=== PATIENT | female | born 1980 | race Caucasian/White ===

== ENCOUNTER 2016-06-18 15:27 | Emergency (ER) | payer OTHER ==
[~2016-06-18] VITALS: Ht 165.1 cm; Wt 72.0 kg
[~2016-06-18 15:27] MED LIST: AZIT250T94 PO; D-ME118S6 PO; FIORICET PO; HYDR-3498 PO; HYDR-762 PO; HYDR-906 PO; IBUP-1542 PO; NAPR-260 PO; OMEP20CA16 PO; ONDA4TAB14 PO; SUCR1TAB56 PO
[2016-06-18 15:32] VITALS: Ht 165.1 cm; Wt 72.0 kg
--- NOTE | 2016-06-18 16:09 | ERD ---
ER Documentation Chief Complaint Date/Time DATE: 06/18/16 TIME: 16:09 Chief Complaint HEADACHE,EPISODE OF NOSE BLEEDING HPI This pleasant 36-year-old female presents to emergency department with 2 week history of headaches, right-sided facial pain, and nosebleeds. Patient reports intermittent dizziness, denies photosensitivity, nausea or vomiting. ROS All systems reviewed and are negative except as per history of present illness. Medications Home Meds Active Scripts Oxymetazoline Hcl* (Afrin [place]*) 0.05% - 15 Ml [place], 2 SPRAYS NASAL BID Y for nose bleed, #1 EA to each nostril Prov:ELMIRA,CB 06/18/16 Amoxicillin* (Amoxicillin*) 500 Mg Cap, 500 MG PO TID for 10 Days, CAP Prov:ELMIRA,CB 06/18/16 Ondansetron (Ondansetron Odt) 4 Mg Tab.rapdis, 4 MG PO Q6H Y for NAUSEA AND/OR VOMITING, #10 TAB Prov:GARTH CASTANEDA DO 01/03/16 Hydrocodone/Acetaminophen ([place] 5-325 Tablet) 1 Each Tablet, 1 TAB PO Q6H Y for PAIN, #7 TAB Prov:GARTH CASTANEDA DO 01/03/16 Omeprazole* (Omeprazole*) 20 Mg Capsule.dr, 20 MG PO BID, #20 Prov:GARTH CASTANEDA DO 01/03/16 Sucralfate* (Carafate*) 1 Gm Tab, 1 GM PO QID, #14 TAB Prov:GARTH CASTANEDA DO 01/03/16 Ibuprofen* (Motrin*) 600 Mg Tab, 600 MG PO Q6, #20 TAB Prov:ALYSON TOTH PA-C 07/17/15 Hydrocodone Bit-Acetaminophen* ([place]*) 10-325 Mg Tablet, 1 TAB PO Q6 Y for PAIN , #7 TAB Prov:ALYSON TOTH PA-C 07/17/15 Hydrocodone Bit-Acetaminophen* ([place]*) 5-325 Mg Tab, 1 TAB PO Q6 Y for PAIN, # 10 TAB Prov:LEORA MEJIA 07/03/15 Dextromethorphan Hb-Promethazine Hcl (Promethazine DM Syrup) 180 Ml Syrup, 10 ML PO Q6H Y for COUGH, #4 OZ Prov:LEORA MEJIA 07/03/15 Azithromycin* (Zithromax*) 250 Mg Tablet, 250 MG PO .ZPACK DIRECTED, #6 TAB TAKE 500 MG (2 TABS) THE FIRST DAY THEN 250 MG (1 TAB) DAYS 2-5 Prov:LEORA MEJIA Dea 07/03/15 Hydrocodone Bit-Acetaminophen* ([place]*) 5-325 Mg Tab, 1 TAB PO Q6 Y for PAIN, # 10 TAB Prov:ALYSON TOTH PA-C 05/30/15 Ibuprofen* (Motrin*) 600 Mg Tab, 600 MG PO Q6, #20 TAB Prov:CONOR SHEN MD 04/01/15 Acetamin/Butalbital/Caffeine* (Fioricet*) 1 Tab Tab, 1 TAB PO Q4H Y for PAIN LEVEL 1-5, #20 TAB Prov:CONOR SHEN MD 04/01/15 Hydrocodone Bit-Acetaminophen* ([place]*) 5-325 Mg Tab, 1 TAB PO Q6 Y for PAIN, # 20 TAB Prov:LEORA MEJIA Dea 03/20/15 Naproxen* (Naprosyn*) 500 Mg Tablet, 500 MG PO BID Y for PAIN AND/OR INFLAMMATION, #30 TAB Prov:LEORA MEJIA Dea 03/20/15 Allergies Allergies: Coded Allergies: No Known Drug Allergy (Verified Allergy, Unknown, 05/30/15) PMhx/Soc Anesthesia Reaction: No Hx Neurological Disorder: No Hx Respiratory Disorders: No Hx Cardiac Disorders: No Hx Psychiatric Problems: No Hx Miscellaneous Medical Probl: Yes (headaches) Hx Alcohol Use: No Hx Substance Use: No Hx Tobacco Use: No Physical Exam Physical Exam Const: No acute distress Head: Atraumatic Eyes: Normal Conjunctiva, PERRLA, EOMI ENT: Bilateral tympanic membranes retracted, nasal mucosa edematous, right turbinate with bleeding points septum midline. Right-sided maxillary and frontal sinus tenderness. Patient feels pressure behind her eyes with leaning forward, Clarinex injected tongue midline uvula rises and falls with pronation. Neck: No cervical point tenderness, full range of motion. Resp: Clear to auscultation bilaterally Cardio: Regular rate and rhythm, no murmurs Abd: Soft, non tender, non distended. Normal bowel sounds Skin: No petechiae or rashes Back: No midline or flank tenderness Ext: No cyanosis, or edema Neur: Neuro: M/S: Alert and oriented Face: EOMI, face and pharynx with normal sensation and function Motor: Normal strength throughout Sensation: Normal sensation throughout Speech: Normal Cerebel: Normal coordination Normal gait Normal finger to nose DTR: 2+ and symmetric upper/lower extremities Psych: Normal Mood and Affect Procedures/MDM This 36-year-old female presents to emergency department with 2 week history of headaches, nasal congestion, unilateral facial pain and intermittent nosebleeds. Differential diagnosis includes but not limited to migraine headache, sinusitis, sinus headache, allergic rhinitis, intracranial mass. Low suspicion for intracranial mass. Likely acute sinusitis secondary to length of symptoms. Likely sinus headache plan to treat patient with Afrin nasal spray for intermittent nosebleeding. Amoxicillin 500 mg 3 times daily for sinus symptoms I feel patient is candidate for outpatient management follow-up with primary care physician. I feel the patient is stable for discharge at this time. I have discussed results, examination findings, the treatment plan with the patient and family present prior to discharge. Indications for emergent reevaluation, side effects of medication were also discussed. All questions were answered. Patient verbalizes understanding and agrees with plan of care. Departure Diagnosis: Primary Impression: Sinusitis Sinusitis location: unspecified location Chronicity: unspecified Qualified Code: J32.9 - Sinusitis, unspecified chronicity, unspecified location Condition: Good Patient Instructions: Causes of Sinusitis Additional Instructions: Thank you for for coming to [facility] for your care today. Please ask your nurse or provider if you have questions about your care today and do not leave until all your questions have been answered. Please use any medications given as directed and follow-up with your doctor (or the doctor you were referred to) in the next 2-3 days. If you do not have a primary care doctor you [place] [facility] [place] [facility] [place] You may also use motrin and tylenol as needed for fever and/or pain unless instructed otherwise by your provider or nurse. Indications for more urgent follow-up have been discussed, but you may return to the Emergency Department at ANY time for any worrisome or worsening symptoms. If you have abdominal pain, please know that no test or exam you received is perfect and you should follow up within 8 hours for continued pain. If you had any imaging studies today, such as an X-Ray or CT Scan, these studies will be reviewed later by a radiologist. You will be called if there are important findings that were not identified today, so make sure the contact information you provided at registration is correct. If you received any narcotic pain control medicine today, such as Vicodin, Morphine or Dilaudid, your coordination and judgment may be affected for a number of hours. Please do not drive or operate heavy machinery, and you may want someone to assist you at home. If you were given a prescription for narcotic medication, be aware that it is very addictive- use sparingly and only if necessary. CB KU Jun 18, 2016 16:09
[2016-06-18] MEDS ORDERED: AMO500 PO (16:11)
[2016-06-18] MEDS ORDERED: OXYM15SP34 NASAL (16:11)
== END 2016-06-18 16:13 | disposition home or self-care (01) ==
LOC: E/R 15:27
DX: J32.9 Chronic sinusitis, unspecified (principal)
CPT/HCPCS: 99283

== ENCOUNTER 2016-08-29 21:27 | Emergency (ER) | payer SELFPAY ==
[~2016-08-29 21:27] MED LIST changes: +AMO500 PO; +OXYM15SP34 NASAL
[2016-08-30] MEDS ORDERED: ONDA4TAB14 PO (10:35)
[2016-08-30] MEDS ORDERED: HYDR-906 PO (10:35)
[2016-08-30] MEDS ORDERED: TAMS-14 PO (10:35)
[2016-08-30] MEDS ORDERED: IBUP-1542 PO (10:35)
== END 2016-08-29 22:47 | disposition left against medical advice (07) ==
LOC: E/R 21:27
DX: Z53.21 Procedure and treatment not carried out due to patient leaving prior to being seen by health care provider (principal)

== ENCOUNTER 2016-08-30 08:38 | Emergency (ER) | payer OTHER ==
[~2016-08-30] VITALS: Wt 71.5 kg
[2016-08-30] MEDS ORDERED: morphine 4 MG/ML VIAL IV STA (09:02)
[2016-08-30] MEDS ORDERED: SOD CHLORIDE 0.9% 1,000 ML IV STA (09:02)
[2016-08-30] MEDS ORDERED: ONDANSETRON 4 MG INJ IV STA ×2 (09:02→10:24)
--- NOTE | 2016-08-30 09:07 | ERD ---
ER Documentation Chief Complaint Date/Time DATE: 08/30/16 TIME: 09:05 Chief Complaint LEFT SIDE/FLANK PAIN, NAUSEA, VOMITING, ONSET 2 WEEKS HPI 36-year-old female comes to emergency department with left sided flank pain and nausea vomiting for 2 weeks. She states she has diffuse left flank pain that goes to the left upper back, described as achy, moderate pain. She states that she has had frequent urination as well and intermittent diarrhea for the past week. She has not had any fevers or chills. ROS All systems reviewed and are negative except as per history of present illness. Medications Home Meds Active Scripts Tamsulosin Hcl* (Flomax*) 0.4 Mg Cap.er.24h, 0.4 MG PO BID, #30 CAP Prov:ALYSON TOTH PA-C 08/30/16 Ibuprofen* (Motrin*) 600 Mg Tab, 600 MG PO Q6, #30 TAB Prov:ALYSON TOTH PA-C 08/30/16 Ondansetron (Ondansetron Odt) 4 Mg Tab.rapdis, 4 MG PO Q6H Y for NAUSEA AND/OR VOMITING, #10 TAB Prov:ALYSON TOTH PA-C 08/30/16 Hydrocodone/Acetaminophen ([place] 5-325 Tablet) 1 Each Tablet, 1 TAB PO Q6H Y for PAIN, #15 TAB Prov:ALYSON TOTH PA-C 08/30/16 Oxymetazoline Hcl* (Afrin [place]*) 0.05% - 15 Ml [place], 2 SPRAYS NASAL BID Y for nose bleed, #1 EA to each nostril Prov:ELMIRA,CB 06/18/16 Amoxicillin* (Amoxicillin*) 500 Mg Cap, 500 MG PO TID for 10 Days, CAP Prov:ELMIRA,CB 06/18/16 Ondansetron (Ondansetron Odt) 4 Mg Tab.rapdis, 4 MG PO Q6H Y for NAUSEA AND/OR VOMITING, #10 TAB Prov:GARTH CASTANEDA DO 01/03/16 Hydrocodone/Acetaminophen ([place] 5-325 Tablet) 1 Each Tablet, 1 TAB PO Q6H Y for PAIN, #7 TAB Prov:GARTH CASTANEDA DO 01/03/16 Omeprazole* (Omeprazole*) 20 Mg Capsule.dr, 20 MG PO BID, #20 Prov:GARTH CASTANEDA DO 01/03/16 Sucralfate* (Carafate*) 1 Gm Tab, 1 GM PO QID, #14 TAB Prov:GARTH CASTANEDA DO 01/03/16 Ibuprofen* (Motrin*) 600 Mg Tab, 600 MG PO Q6, #20 TAB Prov:ALYSON TOTH PA-C 07/17/15 Hydrocodone Bit-Acetaminophen* ([place]*) 10-325 Mg Tablet, 1 TAB PO Q6 Y for PAIN , #7 TAB Prov:ALYSON TOTH PA-C 07/17/15 Hydrocodone Bit-Acetaminophen* ([place]*) 5-325 Mg Tab, 1 TAB PO Q6 Y for PAIN, # 10 TAB Prov:LEORA MEJIA 07/03/15 Dextromethorphan Hb-Promethazine Hcl (Promethazine DM Syrup) 180 Ml Syrup, 10 ML PO Q6H Y for COUGH, #4 OZ Prov:LEORA MEJIA 07/03/15 Azithromycin* (Zithromax*) 250 Mg Tablet, 250 MG PO .RAFAEL DIRECTED, #6 TAB TAKE 500 MG (2 TABS) THE FIRST DAY THEN 250 MG (1 TAB) DAYS 2-5 Prov:LEORA MEJIA 07/03/15 Hydrocodone Bit-Acetaminophen* ([place]*) 5-325 Mg Tab, 1 TAB PO Q6 Y for PAIN, # 10 TAB Prov:ALYSON TOTH PA-C 05/30/15 Ibuprofen* (Motrin*) 600 Mg Tab, 600 MG PO Q6, #20 TAB Prov:CONOR SHEN MD 04/01/15 Acetamin/Butalbital/Caffeine* (Fioricet*) 1 Tab Tab, 1 TAB PO Q4H Y for PAIN LEVEL 1-5, #20 TAB Prov:CONOR SHEN MD 04/01/15 Hydrocodone Bit-Acetaminophen* ([place]*) 5-325 Mg Tab, 1 TAB PO Q6 Y for PAIN, # 20 TAB Prov:LEORA MEJIA 03/20/15 Naproxen* (Naprosyn*) 500 Mg Tablet, 500 MG PO BID Y for PAIN AND/OR INFLAMMATION, #30 TAB Prov:LEORA MEJIA 03/20/15 Allergies Allergies: Coded Allergies: No Known Drug Allergy (Verified Allergy, Unknown, 08/30/16) PMhx/Soc Anesthesia Reaction: No Hx Neurological Disorder: No Hx Respiratory Disorders: No Hx Cardiac Disorders: No Hx Psychiatric Problems: No Hx Miscellaneous Medical Probl: Yes (headaches) Hx Alcohol Use: No Hx Substance Use: No Hx Tobacco Use: No Physical Exam Vitals Vital Signs Date Time Temp Pulse Resp B/P Pulse Ox O2 Delivery O2 Flow Rate FiO2 08/30/16 08:41 97.8 89 17 140/80 98 Physical Exam General: Well-developed, well-nourished. The patient appears in no acute distress. HEENT: Head is normocephalic, atraumatic. No scleral icterus. Neck: Supple. Nontender. Lungs: Clear to auscultation. Normal air movement. Heart: Regular rate and rhythm. S1 and S2 are normal. No murmurs, gallops, or rubs. Abdomen: Soft, nontender, nondistended. Bowel sounds are normoactive. Questionable CVA tenderness on left flank Extremities: No clubbing or cyanosis. Normal pulses. Moving extremities x 4. No weakness. Neurologic: Alert and oriented 3. No focal deficits. Skin: Normal turgor. No rash or lesions. Result Diagram: 08/30/16 0908/30/16 0906 Results 24 hrs Laboratory Tests Test 08/30/16 09:06 White Blood Count 7.110^3/ul Red Blood Count 4.8310^6/ul Hemoglobin 14.4g/dl Hematocrit 40.8% Mean Corpuscular Volume 84.5fl Mean Corpuscular Hemoglobin 29.8pg Mean Corpuscular Hemoglobin Concent 35.3g/dl Red Cell Distribution Width 12.4% Platelet Count 06341^3/UL Mean Platelet Volume 9.3fl Neutrophils % 61.3% Lymphocytes % 30.1% Monocytes % 6.2% Eosinophils % 1.7% Basophils % 0.3% Nucleated Red Blood Cells % 0.0/100WBC Neutrophils # 4.410^3/ul Lymphocytes # 2.110^3/ul Monocytes # 0.410^3/ul Eosinophils # 0.110^3/ul Basophils # 0.010^3/ul Nucleated Red Blood Cells # 0.010^3/ul Urine Color YELLOW Urine Clarity CLEAR Urine pH 8.0 Urine Specific Cecil 1.015 Urine Ketones NEGATIVEmg/dL Urine Nitrite NEGATIVEmg/dL Urine Bilirubin NEGATIVEmg/dL Urine Urobilinogen NEGATIVEmg/dL Urine Leukocyte Esterase NEGATIVELeu/ul Urine Hemoglobin NEGATIVEmg/dL Urine Glucose NEGATIVEmg/dL Urine Total Protein NEGATIVEmg/dl Sodium Level 142mmol/L Potassium Level 3.7mmol/L Chloride Level 102mmol/L Carbon Dioxide Level 26mmol/L Anion Gap 18 Blood Urea Nitrogen 6mg/dl Creatinine 0.58mg/dl Glucose Level 136mg/dl Calcium Level 9.9mg/dl Total Bilirubin 0.3mg/dl Direct Bilirubin 0.00mg/dl Indirect Bilirubin 0.3mg/dl Aspartate Amino Transf (AST/SGOT) 41IU/L Alanine Aminotransferase (ALT/SGPT) 88IU/L Alkaline Phosphatase 100IU/L Total Protein 8.0g/dl Albumin 4.9g/dl Globulin 3.10g/dl Albumin/Globulin Ratio 1.58 Lipase 60U/L Current Medications Medications (Trade) Dose Ordered Sig/Joelle Route PRN Reason Start Time Stop Time Status Last Admin Dose Admin Sodium Chloride (NS) 1,000 ml @ 1,000 mls/hr Q1H STAT IV 08/30/16 09:02 08/30/16 10:01 DC 08/30/16 09:11 Morphine Sulfate (morphine) 4 mg ONCE STAT IV 08/30/16 09:02 08/30/16 09:03 DC 08/30/16 09:10 Ondansetron HCl (Zofran Inj) 4 mg ONCE STAT IV 08/30/16 09:02 08/30/16 09:03 DC 08/30/16 09:10 Ketorolac Tromethamine (Toradol) 30 mg ONCE STAT IV 08/30/16 10:24 08/30/16 10:25 DC 08/30/16 10:31 Ondansetron HCl (Zofran Inj) 4 mg ONCE STAT IV 08/30/16 10:24 08/30/16 10:25 DC 08/30/16 10:31 DIAGNOSTIC IMAGING REPORT Patient: JERI SHIELDS : 1980 Age: 36 Sex: F MR #: [id number] DOS: 08/30/16 0902 Ordering MD: ALYSON TOTH PA-C Location: [facility] Room/Bed: PROCEDURE: Chest Radiograph. CLINICAL INDICATION: Chest pain TECHNIQUE: Single frontal chest radiograph. COMPARISON: Chest radiograph 07/03/2015 FINDINGS: The cardiomediastinal silhouette is within normal limits. No infiltrate or effusion is seen. The bones are intact. IMPRESSION: 1. Unremarkable chest radiograph. RPTAT: KK .Rajeev Abdullahi MD, MD Date Time Electronically viewed and signed by .Rajeev Abdullahi MD, MD on 2016 09:30 .B/ CC: ALYSON TOTH PA-C DIAGNOSTIC IMAGING REPORT Patient: JERI SHIELDS : 1980 Age: 36 Sex: F MR #: [id number] DOS: 08/30/16 0932 Ordering MD: ALYSON TOTH PA-C Location: [facility] Room/Bed: PROCEDURE: CT Abdomen and pelvis without contrast. CLINICAL INDICATION: Left sided flank pain for 2 weeks TECHNIQUE: CT scan of the abdomen and pelvis with contrast was performed on a multidetector high-resolution CT scan. . Coronal and sagittal reformatted images were obtained from the axial source images. Standard CT scan of the abdomen pelvis without contrast protocols were performed. The total exam CTDI equals 13.05 mGy and the total exam DLP equals 736.3 a mGy- cm. One or more of the following dose reduction techniques were used: - Automated exposure control. - Adjustment of the mA and/or kV according to patient size. Use of iterative reconstruction technique. COMPARISON: None. FINDINGS: There is a 3 mm non-obstructing mid to superior left renal calcified calculus. No other renal calcified calculi. No hydronephrosis or intra renal masses bilaterally. The ureters and urinary bladder are unremarkable. The uterus is anteverted and anteflexed but otherwise unremarkable. No adnexal masses. Minimal fluid in the cul-de-sac. No other abdominal free fluid, free air or abscesses. Negative for abdominal or pelvic lymphadenopathy. The appendix is unremarkable. The stomach, small bowel and large bowel are unremarkable. The liver spleen pancreas adrenal glands and gallbladder are unremarkable. No evidence biliary ductal dilation. The aorta is unremarkable. Lung bases are unremarkable. Lower thoracic abdominal pelvic dunne are unremarkable. There is mild degenerative changes lower thoracic and lumbar spine without acute osseous findings are osteoblastic/ osteolytic lesions. IMPRESSION: 1. 3 mm nonobstructing mid to superior left renal calcified calculus. No other urinary calcified calculi. No obstructive uropathy. 2. Minimal free fluid in the cul-de-sac. No intra-abdominal free air or abscesses. 3. Unremarkable appendix. RPTAT:AAJJ Physician Jed Date Time Electronically viewed and signed by Karyn Dill Physician on 08/30/2016 10:12 BM/ CC: ALYSON TOTH PA-C Procedures/MDM ED course: Patient had blood and urine obtained, IV line was established and she was given morphine 4 mg, Zofran 4 mg IV fluid bolus of normal saline 1 L. MDM: 36 yo female comes in with left flank pain, CT abdomen pelvis shows a 3 mm nonobstructing kidney stone. Labs and urine were reviewed, no evidence of leukocytosis, no renal insufficiency or failure urine is negative for infection. She did complain of left upper back pain, chest x-ray is performed there is no evidence of pneumonia. No concerning hydronephrosis. This is all discussed with the patient, she was advised to follow-up with urologist given that her pain is been ongoing for 2 weeks. I will give her a copy of her labs as well as a CT scan. She will be covered for pain with [place] and ibuprofen, and she will also be given Flomax for pain. No evidence of septic kidney stones , obstructive uropathy, pyelonephritis, renal failure. Stable for discharge. Departure Diagnosis: Primary Impression: Kidney stone Condition: Good ALYSON TOTH PA-C Aug 30, 2016 09:07
[2016-08-30 09:14] LABS: ADD SCAN DIFF NO
[2016-08-30 09:18] LABS: BASOPHILS % 0.3 % (0.0-2.0); EOSINOPHILS # 0.1 10^3/ul (0.0-0.5); EOSINOPHILS % 1.7 % (0.0-7.0); HEMATOCRIT 40.8 % (37.0-47.0); HEMOGLOBIN 14.4 g/dl (12.0-16.0); LYMPHOCYTES # 2.1 10^3/ul (0.8-2.9); LYMPHOCYTES % 30.1 % (15.0-51.0); MEAN CORPUSCULAR HEMOGLOBIN 29.8 pg (29.0-33.0); MEAN CORPUSCULAR HGB CONC 35.3 g/dl (32.0-37.0); MEAN CORPUSCULAR VOLUME 84.5 fl (82.0-101.0); MEAN PLATELET VOLUME 9.3 fl (7.4-10.4); MONOCYTE # 0.4 10^3/ul (0.3-0.9); MONOCYTES % 6.2 % (0.0-11.0); NEUTROPHIL # 4.4 10^3/ul (1.6-7.5); NEUTROPHILS % 61.3 % (39.0-77.0); PLATELET COUNT 363 10^3/UL (140-415); RED BLOOD COUNT 4.83 10^6/ul (4.20-5.40); RED CELL DISTRIBUTION WIDTH 12.4 % (11.5-14.5); WHITE BLOOD COUNT 7.1 10^3/ul (4.8-10.8)
[2016-08-30 09:20] LABS: ADD UMIC NO; UR ASCORBIC ACID NEGATIVE (NEGATIVE); UR BILIRUBIN (Dip) NEGATIVE (NEGATIVE); UR BLOOD (Dip) NEGATIVE (NEGATIVE); UR CLARITY CLEAR (CLEAR); UR COLOR YELLOW (YELLOW); UR GLUCOSE (Dip) NEGATIVE (NEGATIVE); UR KETONES (Dip) NEGATIVE (NEGATIVE); UR LEUKOCYTE ESTERASE (Dip) NEGATIVE Leu/ul (NEGATIVE); UR NITRITE (Dip) NEGATIVE (NEGATIVE); UR SPECIFIC GRAVITY (Dip) 1.015 (1.003-1.030); UR TOTAL PROTEIN (Dip) NEGATIVE (NEGATIVE); UR UROBILINOGEN (Dip) NEGATIVE (NEGATIVE)
--- NOTE | 2016-08-30 09:31 | RADRPT ---
PROCEDURE: Chest Radiograph. CLINICAL INDICATION: Chest pain TECHNIQUE: Single frontal chest radiograph. COMPARISON: Chest radiograph 07/03/2015 FINDINGS: The cardiomediastinal silhouette is within normal limits. No infiltrate or effusion is seen. Th e bones are intact. IMPRESSION: 1. Unremarkable chest radiograph. RPTAT: KK .Rajeev Abdullahi MD, MD Date Time Electronically viewed and signed by .Rajeev Abdullahi MD, on 08/30/2016 09:30 .B/
[2016-08-30 09:44] LABS: ALBUMIN 4.9 g/dl (3.3-4.9); ALBUMIN/GLOBULIN RATIO 1.58; BILIRUBIN,INDIRECT 0.3 mg/dl (0-1.1); BILIRUBIN,TOTAL 0.3 mg/dl (0.2-1.3); CALCIUM 9.9 mg/dl (8.4-10.2); CREATININE 0.58 mg/dl (0.44-1.00); POTASSIUM 3.7 mmol/L (3.5-5.1)
--- NOTE | 2016-08-30 10:12 | RADRPT ---
PROCEDURE: CT Abdomen and pelvis without contrast. CLINICAL INDICATION: Left sided flank pain for 2 weeks TECHNIQUE: CT scan of the abdomen and pelvis with contrast was performed on a multidetector high-r esolution CT scan. . Coronal and sagittal reformatted images were obtained from the axial source i mages. Standard CT scan of the abdomen pelvis without contrast protocols were performed. The total exam CTDI equals 13.05 mGy and the total exam DLP equals 736.3 a mGy-cm. One or more of the following dose reduction techniques were used: - Automated exposure control. - Adjustment of the mA and/or kV according to patient size. Use of iterative reconstruction technique. COMPARISON: None. FINDINGS: There is a 3 mm non-obstructing mid to superior left renal calcified calculus. No other renal calci fied calculi. No hydronephrosis or intra renal masses bilaterally. The ureters and urinary bladder are unremarkable. The uterus is anteverted and anteflexed but otherwise unremarkable. No adnexal masses. Minimal fluid in the cul-de-sac. No other abdominal free fluid, free air or abscesses. Negative fo r abdominal or pelvic lymphadenopathy. The appendix is unremarkable. The stomach, small bowel and large bowel are unremarkable. The liver spleen pancreas adrenal glands and gallbladder are unremarkable. No evidence biliary duct al dilation. The aorta is unremarkable. Lung bases are unremarkable. Lower thoracic abdominal pelvic dunne are unremarkable. There is mild degenerative changes lower thoracic and lumbar spine without acute osse ous findings are osteoblastic/osteolytic lesions. IMPRESSION: 1. 3 mm nonobstructing mid to superior left renal calcified calculus. No other urinary calcified c alculi. No obstructive uropathy. 2. Minimal free fluid in the cul-de-sac. No intra-abdominal free air or abscesses. 3. Unremarkable appendix. RPTAT:AAJJ Physician Jed Date Time Electronically viewed and signed by Physician Jed on 08/30/2016 10:12 BM/
[2016-08-30] MEDS ORDERED: KETOROLAC 30 MG INJ IV STA (10:24)
[2016-08-30] MEDS ORDERED: IBUP-1542 PO (10:35)
[2016-08-30] MEDS ORDERED: ONDA4TAB14 PO (10:35)
[2016-08-30] MEDS ORDERED: TAMS-14 PO (10:35)
[2016-08-30] MEDS ORDERED: HYDR-906 PO (10:35)
[2016-08-30 11:21] VITALS: BP 135/78; PULSE 89; RESP 17
== END 2016-08-30 11:22 | disposition home or self-care (01) ==
LOC: FTE 08:38
DX: N20.0 Calculus of kidney (principal); R11.2 Nausea with vomiting, unspecified
CPT/HCPCS: 71010; 74176; 80053; 81003; 83690; 85025; J1885; J2270; J2405; J7030; 36415; 96374; 96375; 96376

== ENCOUNTER 2016-09-25 14:17 | Emergency (ER) | payer OTHER ==
[~2016-09-25] VITALS: Ht 160 cm; Wt 72.0 kg
[~2016-09-25 14:17] MED LIST changes: +TAMS-14 PO
[2016-09-25 14:21] VITALS: Ht 160 cm; Wt 72.0 kg
[2016-09-25] MEDS ORDERED: KETOROLAC 30 MG INJ IM STA (15:03)
--- NOTE | 2016-09-25 15:19 | ERD ---
ER Documentation Chief Complaint Date/Time DATE: 09/25/16 TIME: 15:14 Chief Complaint LLQ PAIN DX: KIDNEY STONES 2WKS AGO, WAITING TO SEE PCP HPI 36 yo female with a history of a 3mm renal kidney stone comes in with left sided abdominal pain. She was diagnosed on CT scan that was about 2 weeks ago. Patient reports that she has an appointment to see her primary care physician in about 2 weeks, she has been out of her pain medication. She has achy pain, sharp, intermittent on the left side. She has not had any fevers or chills. Denies hematuria, dysuria, urgency or frequency. ROS All systems reviewed and are negative except as per history of present illness. Medications Home Meds Active Scripts Tamsulosin Hcl* (Flomax*) 0.4 Mg Cap.er.24h, 0.4 MG PO BID, #30 CAP Prov:ALYSON TOTH PA-C 09/25/16 Hydrocodone/Acetaminophen (Isabella 5-325 Tablet) 1 Each Tablet, 1 TAB PO Q6H Y for PAIN, #15 TAB Prov:ALYSON TOTH PA-C 09/25/16 Ibuprofen* (Motrin*) 600 Mg Tab, 600 MG PO Q6, #30 TAB Prov:ALYSON TOTH PA-C 09/25/16 Tamsulosin Hcl* (Flomax*) 0.4 Mg Cap.er.24h, 0.4 MG PO BID, #30 CAP Prov:ALYSON TOTH PA-C 08/30/16 Ibuprofen* (Motrin*) 600 Mg Tab, 600 MG PO Q6, #30 TAB Prov:ALYSON TOTH PA-C 08/30/16 Ondansetron (Ondansetron Odt) 4 Mg Tab.rapdis, 4 MG PO Q6H Y for NAUSEA AND/OR VOMITING, #10 TAB Prov:ALYSON TOTH PA-C 08/30/16 Hydrocodone/Acetaminophen (Isabella 5-325 Tablet) 1 Each Tablet, 1 TAB PO Q6H Y for PAIN, #15 TAB Prov:ALYSON TOTH PA-C 08/30/16 Oxymetazoline Hcl* (Afrin [place]*) 0.05% - 15 Ml [place], 2 SPRAYS NASAL BID Y for nose bleed, #1 EA to each nostril Prov:CB KU 06/18/16 Amoxicillin* (Amoxicillin*) 500 Mg Cap, 500 MG PO TID for 10 Days, CAP Prov:ELMIRA,CB 06/18/16 Ondansetron (Ondansetron Odt) 4 Mg Tab.rapdis, 4 MG PO Q6H Y for NAUSEA AND/OR VOMITING, #10 TAB Prov:GARTH CASTANEDA DO 01/03/16 Hydrocodone/Acetaminophen (Isabella 5-325 Tablet) 1 Each Tablet, 1 TAB PO Q6H Y for PAIN, #7 TAB Prov:TONYA,GARTH DO 01/03/16 Omeprazole* (Omeprazole*) 20 Mg Capsule.dr, 20 MG PO BID, #20 Prov:TONYA,GARTH DO 01/03/16 Sucralfate* (Carafate*) 1 Gm Tab, 1 GM PO QID, #14 TAB Prov:GARTH CASTANEDA DO 01/03/16 Ibuprofen* (Motrin*) 600 Mg Tab, 600 MG PO Q6, #20 TAB Prov:ALYSON TOTH PA-C 07/17/15 Hydrocodone Bit-Acetaminophen* (Isabella*) 10-325 Mg Tablet, 1 TAB PO Q6 Y for PAIN , #7 TAB Prov:ALYSON TOTH PA-C 07/17/15 Hydrocodone Bit-Acetaminophen* (Isabella*) 5-325 Mg Tab, 1 TAB PO Q6 Y for PAIN, # 10 TAB Prov:LEORA MEJIA 07/03/15 Dextromethorphan Hb-Promethazine Hcl (Promethazine DM Syrup) 180 Ml Syrup, 10 ML PO Q6H Y for COUGH, #4 OZ Prov:LEORA MEJIA 07/03/15 Azithromycin* (Zithromax*) 250 Mg Tablet, 250 MG PO .ALLISONCK DIRECTED, #6 TAB TAKE 500 MG (2 TABS) THE FIRST DAY THEN 250 MG (1 TAB) DAYS 2-5 Prov:LEORA MEJIA 07/03/15 Hydrocodone Bit-Acetaminophen* (Isabella*) 5-325 Mg Tab, 1 TAB PO Q6 Y for PAIN, # 10 TAB Prov:ALYSON TOTH PA-C 05/30/15 Ibuprofen* (Motrin*) 600 Mg Tab, 600 MG PO Q6, #20 TAB Prov:CONOR SHEN MD 04/01/15 Acetamin/Butalbital/Caffeine* (Fioricet*) 1 Tab Tab, 1 TAB PO Q4H Y for PAIN LEVEL 1-5, #20 TAB Prov:CONOR SHEN MD 04/01/15 Hydrocodone Bit-Acetaminophen* (Isabella*) 5-325 Mg Tab, 1 TAB PO Q6 Y for PAIN, # 20 TAB Prov:JACKIELEORA C 03/20/15 Naproxen* (Naprosyn*) 500 Mg Tablet, 500 MG PO BID Y for PAIN AND/OR INFLAMMATION, #30 TAB Prov:JACKIE,LEORA C 03/20/15 Allergies Allergies: Coded Allergies: No Known Drug Allergy (Verified Allergy, Unknown, 08/30/16) PMhx/Soc Anesthesia Reaction: No Hx Neurological Disorder: No Hx Respiratory Disorders: No Hx Cardiac Disorders: No Hx Psychiatric Problems: No Hx Miscellaneous Medical Probl: Yes (headaches) Hx Alcohol Use: No Hx Substance Use: No Hx Tobacco Use: No Physical Exam Vitals Vital Signs Date Time Temp Pulse Resp B/P Pulse Ox O2 Delivery O2 Flow Rate FiO2 09/25/16 14:21 97.4 75 18 118/62 99 Physical Exam General: Well-developed, well-nourished. The patient appears in no acute distress. HEENT: Head is normocephalic, atraumatic. No scleral icterus. Neck: Supple. Nontender. Lungs: Clear to auscultation. Normal air movement. Heart: Regular rate and rhythm. S1 and S2 are normal. No murmurs, gallops, or rubs. Abdomen: Soft, nontender, nondistended. Bowel sounds are normoactive. Extremities: No clubbing or cyanosis. Normal pulses. Moving extremities x 4. No weakness. Neurologic: Alert and oriented 3. No focal deficits. Skin: Normal turgor. No rash or lesions. Result Diagram: 09/25/16 1515 09/25/16 1515 Results 24 hrs Laboratory Tests Test 09/25/16 15:15 09/25/16 16:25 White Blood Count 8.810^3/ul Red Blood Count 4.6510^6/ul Hemoglobin 13.3g/dl Hematocrit 39.6% Mean Corpuscular Volume 85.2fl Mean Corpuscular Hemoglobin 28.6pg Mean Corpuscular Hemoglobin Concent 33.6g/dl Red Cell Distribution Width 12.4% Platelet Count 41829^3/UL Mean Platelet Volume 9.4fl Neutrophils % 67.8% Lymphocytes % 23.2% Monocytes % 5.9% Eosinophils % 2.6% Basophils % 0.3% Nucleated Red Blood Cells % 0.0/100WBC Neutrophils # 6.010^3/ul Lymphocytes # 2.010^3/ul Monocytes # 0.510^3/ul Eosinophils # 0.210^3/ul Basophils # 0.010^3/ul Nucleated Red Blood Cells # 0.010^3/ul Sodium Level 144mmol/L Potassium Level 3.7mmol/L Chloride Level 100mmol/L Carbon Dioxide Level 27mmol/L Anion Gap 21 Blood Urea Nitrogen 11mg/dl Creatinine 0.60mg/dl Glucose Level 117mg/dl Calcium Level 9.5mg/dl Total Bilirubin 0.0mg/dl Direct Bilirubin 0.00mg/dl Indirect Bilirubin 0.0mg/dl Aspartate Amino Transf (AST/SGOT) 24IU/L Alanine Aminotransferase (ALT/SGPT) 42IU/L Alkaline Phosphatase 118IU/L Total Protein 7.8g/dl Albumin 4.4g/dl Globulin 3.40g/dl Albumin/Globulin Ratio 1.29 Urine Color YELLOW Urine Clarity CLEAR Urine pH 6.0 Urine Specific [place] 1.028 Urine Ketones NEGATIVEmg/dL Urine Nitrite NEGATIVEmg/dL Urine Bilirubin NEGATIVEmg/dL Urine Urobilinogen NEGATIVEmg/dL Urine Leukocyte Esterase NEGATIVELeu/ul Urine Hemoglobin NEGATIVEmg/dL Urine Glucose NEGATIVEmg/dL Urine Total Protein NEGATIVEmg/dl Current Medications Medications (Trade) Dose Ordered Sig/Joelle Route PRN Reason Start Time Stop Time Status Last Admin Dose Admin Ketorolac Tromethamine (Toradol) 30 mg ONCE STAT IM 09/25/16 15:03 09/25/16 15:05 DC 09/25/16 15:23 Procedures/MDM ED course: She was given Toradol 30 mg IM. Medical decision making: This 36-year-old female presents with renal colic, states that she has an appointment in about 2 weeks with her primary care doctor. She is often able to see a urologist and she has been out of her pain medications from the previous visit. Workup included labs as well as a urine, and her urine was negative for infection. Renal function was also unremarkable. There is no elevated white blood cell count to show any significant infectious process. Patient likely presents of renal colic that appears to be stable. She will be given refills of her pain medication and has been asked to follow-up with urology as soon as possible. Departure Diagnosis: Primary Impression: Renal colic Condition: ALYSON Real PA-C Sep 25, 2016 15:19
[2016-09-25 15:31] LABS: BASOPHILS % 0.3 % (0.0-2.0); EOSINOPHILS # 0.2 10^3/ul (0.0-0.5); EOSINOPHILS % 2.6 % (0.0-7.0); HEMATOCRIT 39.6 % (37.0-47.0); HEMOGLOBIN 13.3 g/dl (12.0-16.0); LYMPHOCYTES % 23.2 % (15.0-51.0); MEAN CORPUSCULAR HEMOGLOBIN 28.6 pg (29.0-33.0); MEAN CORPUSCULAR HGB CONC 33.6 g/dl (32.0-37.0); MEAN CORPUSCULAR VOLUME 85.2 fl (82.0-101.0); MEAN PLATELET VOLUME 9.4 fl (7.4-10.4); MONOCYTE # 0.5 10^3/ul (0.3-0.9); MONOCYTES % 5.9 % (0.0-11.0); NEUTROPHILS % 67.8 % (39.0-77.0); PLATELET COUNT 382 10^3/UL (140-415); RED BLOOD COUNT 4.65 10^6/ul (4.20-5.40); RED CELL DISTRIBUTION WIDTH 12.4 % (11.5-14.5); WHITE BLOOD COUNT 8.8 10^3/ul (4.8-10.8)
[2016-09-25 15:52] LABS: ALBUMIN 4.4 g/dl (3.3-4.9); ALBUMIN/GLOBULIN RATIO 1.29; CALCIUM 9.5 mg/dl (8.4-10.2); CREATININE 0.6 mg/dl (0.44-1.00); POTASSIUM 3.7 mmol/L (3.5-5.1); TOTAL PROTEIN 7.8 g/dl (6.1-8.1)
[2016-09-25] MEDS ORDERED: HYDR-906 PO (16:32)
[2016-09-25] MEDS ORDERED: IBUP-1542 PO (16:32)
[2016-09-25] MEDS ORDERED: TAMS-14 PO (16:32)
[2016-09-25 16:49] LABS: ADD UMIC NO; UR ASCORBIC ACID NEGATIVE (NEGATIVE); UR BILIRUBIN (Dip) NEGATIVE (NEGATIVE); UR BLOOD (Dip) NEGATIVE (NEGATIVE); UR CLARITY CLEAR (CLEAR); UR COLOR YELLOW (YELLOW); UR GLUCOSE (Dip) NEGATIVE (NEGATIVE); UR KETONES (Dip) NEGATIVE (NEGATIVE); UR LEUKOCYTE ESTERASE (Dip) NEGATIVE Leu/ul (NEGATIVE); UR NITRITE (Dip) NEGATIVE (NEGATIVE); UR SPECIFIC GRAVITY (Dip) 1.028 (1.003-1.030); UR TOTAL PROTEIN (Dip) NEGATIVE (NEGATIVE); UR UROBILINOGEN (Dip) NEGATIVE (NEGATIVE)
== END 2016-09-25 16:45 | disposition home or self-care (01) ==
LOC: FTE 14:17
DX: N23 Unspecified renal colic (principal)
CPT/HCPCS: 36415; 80053; 81003; 85025; 96372; J1885; Z7502

== ENCOUNTER 2017-10-29 12:28 | Emergency (ER) | END 2017-10-29 14:54 | disposition home or self-care (01) ==

== ENCOUNTER 2017-12-14 08:27 | Emergency (ER) | END 2017-12-14 10:16 | disposition home or self-care (01) ==

== ENCOUNTER 2018-05-22 12:47 | Inpatient (IN) | payer OTHER ==
[~2018-05-22] VITALS: Ht 160 cm; Wt 85.1 kg
[~2018-05-22 12:47] MED LIST changes: -AMO500 PO; +AMOX500C2 PO; +AZIT250T PO; -AZIT250T94 PO; +CIPR-193 PO; +HYDR-4011 PO; -HYDR-906 PO; -NAPR-260 PO; +NAPR-985 PO
[2018-05-22 13:01] VITALS: Ht 160 cm; Wt 85.1 kg
[2018-05-22 13:02] VITALS: BP 113/69
[2018-05-22] MEDS ORDERED: PREN1TAB71 PO (13:03)
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
[2018-05-22] MEDS: LACTATED RINGER'S 1,000 ML IV SCH ×2 (17:21→18:50)
[2018-05-22] MEDS: ACETAMINOPHEN 325 MG TAB PO PRN ×2 (17:29→21:48)
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
[2018-05-23] MEDS: LACTATED RINGER'S 1,000 ML IV SCH ×2 (00:31→08:39)
[2018-05-23] MEDS: ACETAMINOPHEN 325 MG TAB PO PRN ×2 (03:07→07:52)
[2018-05-23] MEDS ORDERED: PRENATAL VITAMIN PO SCH (09:00)
[2018-05-23] MEDS ORDERED: FERROUS SULFATE (EC) 325 MG TAB PO SCH (09:00)
== END 2018-05-23 13:30 | disposition home or self-care (01) | DRG 833 ==
LOC: L-D 12:47 → OBT 12:47 → L-D 16:45 → OBT 16:45 → L-D 17:39 → PP1 22:12
PROVIDERS: ADMIT Obstetrics & Gynecology; ATTEND Obstetrics & Gynecology
DX: O26.892 Other specified pregnancy related conditions, second trimester (principal); S39.91XA Unspecified injury of abdomen, initial encounter; V49.9XXA Car occupant (driver) (passenger) injured in unspecified traffic accident, initial encounter; Y92.410 Unspecified street and highway as the place of occurrence of the external cause; Z3A.24 24 weeks gestation of pregnancy; O09.522 Supervision of elderly multigravida, second trimester
CPT/HCPCS: 76815; 76817; 82731; 85025; 85460; 86850; 86900; 86901; G0463; J7120

== ENCOUNTER 2018-08-10 14:45 | Outpatient (CLI) | payer OTHER ==
[~2018-08-10] VITALS: Ht 160 cm; Wt 95.3 kg
[2018-08-10 15:03] VITALS: BP 130/71; PULSE 83; RESP 18; Ht 160 cm; Wt 95.3 kg
[2018-08-10] MEDS ORDERED: PNV11TAB PO (15:05)
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
[2018-08-10] MEDS ORDERED: ACET325T33 PO (17:25)
--- NOTE | 2018-08-30 15:17 | PN ---
Triage Information Date/Time Reason for visit: right sided face tingling. Pt. not seen by me at the hospital. was sent to the ER Weeks of Gestation unrknown /Para unknown BEVERLY MACIAS MD Aug 30, 2018 15:17
== END 2018-08-10 15:50 | disposition home or self-care (01) ==
LOC: OBT 14:45 → L-D 14:46 → OBT 15:50
PROVIDERS: ATTEND Obstetrics & Gynecology
DX: O26.893 Other specified pregnancy related conditions, third trimester (principal); R20.2 Paresthesia of skin; Z3A.36 36 weeks gestation of pregnancy
CPT/HCPCS: 76818; Z7500; G0463

== ENCOUNTER 2018-08-10 15:58 | Emergency (ER) | payer OTHER ==
[~2018-08-10] VITALS: Wt 78.0 kg
[~2018-08-10 15:58] MED LIST changes: -AMOX500C2 PO; -AZIT250T PO; -CIPR-193 PO; -D-ME118S6 PO; -FIORICET PO; -HYDR-3498 PO; -HYDR-4011 PO; -HYDR-762 PO; -IBUP-1542 PO; -NAPR-985 PO; -OMEP20CA16 PO; -ONDA4TAB14 PO; -OXYM15SP34 NASAL; +PNV11TAB PO; -SUCR1TAB56 PO; -TAMS-14 PO
[2018-08-10 16:01] VITALS: BP 128/79; PULSE 78; RESP 18
[2018-08-10] MEDS ORDERED: ACET325T33 PO (17:25)
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
--- NOTE | 2018-08-10 20:00 | PN ---
Triage Information Date/Time 08/10/1809/21/1714 Reason for visit: Rt side of body tingling sensation on right side face started today, foot started yesterday Weeks of Gestation 36e2d /Para Diabetes: none Hypertention: none Additional information pain on only on right side of body Objective Vital Signs Date Temp Pulse Resp B/P (MAP) Pulse Ox O2 O2 Flow FiO2 Time Delivery Rate 08/10/18 98.1 78 18 128/79 99 16:01 (95) Heart Rate: 130's Results/Medications Imaging Results BPP 10/11 DAVID 14.3 Disposition: ER Assessment/Plan A IUP 36w2d Rt paresthesia P to ER for futher evaluation CHAO COKER MD Aug 10, 2018 17:25
== END 2018-08-10 17:43 | disposition home or self-care (01) ==
LOC: FTE 15:58
DX: O99.353 Diseases of the nervous system complicating pregnancy, third trimester (principal); G56.01 Carpal tunnel syndrome, right upper limb; Z3A.36 36 weeks gestation of pregnancy
CPT/HCPCS: 81003; Z7502; 99283

== ENCOUNTER 2018-08-30 08:37 | Inpatient (IN) | payer OTHER ==
[~2018-08-30] VITALS: Ht 160 cm; Wt 98.6 kg
[~2018-08-30 08:37] MED LIST changes: +ACET325T33 PO
[2018-08-30] MEDS ORDERED: LACTATED RINGER'S 1,000 ML IV SCH ×2 (09:05→15:59)
[2018-08-30 09:24] VITALS: Ht 160 cm; Wt 98.6 kg
[2018-08-30 09:25] VITALS: BP 115/77; PULSE 85; RESP 18
[2018-08-30] MEDS ORDERED: OXYTOCIN 30 UNITS/LR 500 ML IV PRN ×2 (09:30→16:00)
[2018-08-30] MEDS ORDERED: OXYTOCIN 30 UNITS/LR 500 ML IV SCH ×2 (09:30→15:59)
[2018-08-30] MEDS ORDERED: CEFAZOLIN 2 GM/50 ML (PMX) 50 ML IVPB SCH (09:30)
[2018-08-30] MEDS ORDERED: MISOPROSTOL 200 MCG TAB PR PRN ×2 (09:30→16:00)
[2018-08-30] MEDS ORDERED: CARBOPROST 250 MCG INJ IM PRN ×2 (09:30→16:00)
[2018-08-30] MEDS ORDERED: METHYLERGONOVINE 0.2 MG INJ IM PRN ×2 (09:30→16:00)
[2018-08-30] MEDS ORDERED: CITRIC ACID/NA CITRATE 30 ML CUP ONE (10:27)
[2018-08-30] MEDS ORDERED: CITRIC ACID/NA CITRATE 30 ML CUP PO ONE (10:30)
--- NOTE | 2018-08-30 10:30 | PREAC ---
Date/Time of Note Date/Time of Note DATE: 08/30/18 TIME: 10:29 Anesthesia Eval and Record Evaluation Time Pre-Procedure Interview DATE: 08/30/18 TIME: 10:29 Age 38 Sex female NPO: 8 hrs Preoperative diagnosis repeat c section Planned procedure c section BTL Past Medical History Past Medical History: Includes : Gestational age: (39.1) Surgery & Anesthesia Issues Hx of PONV, No known issue Meds Anticoagulation: No Beta Ivon within 24 hr: No Reason Beta Ivon not given: Pt. not on B-Ivon Active Scripts Acetaminophen* (Tylenol*) 325 Mg Tablet, 1 TAB PO Q6 PRN for PAIN AND OR ELEVATED TEMP, #20 TAB Prov:CUCA ESPAÑA PA-C 08/10/18 Reported Medications [id number]-AG-[id number] ( 19) 1 Each Tablet, 1 TAB PO DAILY, TAB 08/10/18 Current Medications Lactated Ringer's 1,000 ml @ 125 mls/hr Q8H IV Last administered on 08/30/18at 09:39; Admin Dose 125 MLS/HR; Start 08/30/18 at 09:05 Cefazolin Sodium/ Dextrose 50 ml @ 100 mls/hr ONCE IVPB ; Start 08/30/18 at 0 9:30 Oxytocin/Lactated Ringer's 500 ml @ 125 mls/hr POST IV ; Start 08/30/18 at 09:30 Oxytocin/Lactated Ringer's 500 ml @ 0 mls/hr ONCE PRN IV .VAGINAL BLEEDING; Start 08/30/18 at 09:30 Methylergonovine Maleate (Methergine) 0.2 mg ONCE PRN IM .VAGINAL BLEEDING; Start 08/30/18 at 09:30 Carboprost Tromethamine (Hemabate) 250 mcg ONCE PRN IM .VAGINAL BLEEDING; Start 08/30/18 at 09:30 Misoprostol (Cytotec) 1,000 mcg ONCE PRN MT .VAGINAL BLEEDING; Start 08/30/18 at 09:30 Citric Acid/ Sodium Citrate (Bicitra) 30 ml ONCE ONCE PO ; Start 08/30/18 at 10:30; Stop 08/30/18 at 10:31; Status UNV Meds reviewed: Yes Allergies Coded Allergies: No Known Drug Allergy (Verified Allergy, Unknown, 12/14/17) Allergies Reviewed: Yes Labs/Studies Labs Reviewed: Reviewed by anesthesiologist Result Diagram: 08/30/18 0924 Laboratory Tests 08/30/18 09:24 test: Positive Studies: ECG (n/a), CXR (n/a) Pre-procedure Exam Last vitals Vital Signs Date Temp Pulse Resp B/P (MAP) Pulse Ox O2 O2 Flow FiO2 Time Delivery Rate 08/30/18 98.5 85 18 115/77 99 Room Air 09:25 (90) Airway: Adequate mouth opening Mallampati: Mallampati I Teeth: Normal Lung: Normal Heart: Normal ASA Physical Status ASA physical status: 2 Emergency: None Planned Anesthetic Neuraxial: Spinal Planned Pain Management Sub-arachniod narcotics Pre-operative Attestations Prior to commencing anesthesia and surgery, the patient was re-evaluated, there was verification of: *The patient's identity *The results of appropriate recent lab work and preoperative vital signs *The above evaluation not changing prior to induction *Anesthetic plan, risk benefits, alternative and complications discussed with patient/family; questions answered; patient/family understands, accepts and wishes to proceed. RADHA LAGUNAS MD Aug 30, 2018 10:30
[2018-08-30] MEDS ORDERED: METOCLOPRAMIDE 10 MG INJ ONE (11:32)
[2018-08-30] MEDS ORDERED: ONDANSETRON 4 MG INJ ONE (11:32)
[2018-08-30] MEDS ORDERED: KETOROLAC 30 MG INJ ONE (11:32)
[2018-08-30] MEDS ORDERED: morphine SULFATE/PF (10 MG/10 ML) INJ ONE (11:32)
[2018-08-30] MEDS ORDERED: PHENYLephrine (100 MCG/ML) 10ML SYG ONE (11:43)
--- NOTE | 2018-08-30 11:49 | HP ---
Date/Time of Note Date/Time of Note DATE: 08/30/18 TIME: 11:48 OB - History Hx of Present Free Text/Dictation at term preg for repeat c/s and btl Care: Good Care Ultrasounds: Normal mid trimester US Obstetrical Complications: None Medical Complications: None Past Family/Social History * Past Medical, Surgical, Family and Obstetric Histories reviewed from chart. OB Admission Exam Vital Signs Vital Signs Vital Signs Date Temp Pulse Resp B/P (MAP) Pulse Ox O2 O2 Flow FiO2 Time Delivery Rate 08/30/18 98.5 85 18 115/77 99 Room Air 09:25 (90) Physical Exam HEENT: WNL Heart: Rhythm Normal Lungs: Clear, Equal Abdomen: WNL Extremities: Normal Reflexes: Normal Cervical Dilatation: None Effacement: 0% Station: Ballotable Membranes: Intact Heart Rate: 120's Accelerations: Accelerations Present Decelerations: No Decelerations Varibility: Moderate Last 72 hours Lab Results CBC & BMP 08/30/18 09:24 OB Assessment/Plan Reason for admission: section Plan: Section BEVERLY MACIAS MD Aug 30, 2018 11:49
[2018-08-30] MEDS ORDERED: OXYTOCIN 30 UNITS/LR 500 ML IV ONE (12:20)
--- NOTE | 2018-08-30 12:27 | OPR ---
Operative Report Planned Procedure Procedure date Aug 30, 2018 Procedure(s) repeat c/s , BTL. LYSIS OF OMENTAL ADHESIONS Performed by see signature line Glove Turner And Former: AYSHA CULVER MD Pre-procedure diagnosis TERM PREG AND MULTIPAIRYT [id number] Anesthesia Type: Mtnyp9i spinal Post-Procedure Post-procedure diagnosis TERM PREG AND MULTIPARITY AND OMENTAL ADHESIONS Findings Live Baby [], Apgars [] and [], weight [], position [], [] presentation []cord. Estimated Blood Loss: 600 - 700 mls Specimen(s) none Grafts/Implant(s) none Complication(s) none Pt Condition post procedure: stable Disposition: PACU Procedure Description Under satisfactory []SPINAL anesthesia, the patient was prepped and draped and placed in a supine position, tilted to the left. Pfannenstiel incision was made, carried through the subcutaneous tissue. Bleeders brought under control with electrocautery. Fascia incised to the length of the incision. Rectus muscles from the fascia, divided midline. Peritoneum exposed, entered through a transverse incision. Exploration of abdomen revealed gravid uterus with multiple omental adhesions to the lower uterine segment. The adhsions were clamped and suture ligated and dissected out sent to pathology. Bladder flap was developed. Transverse incision was made in the lower segment of the uterus. Amniotic sac ruptured. [clear] amniotic fluid noted. [] Nasal oropharyngeal suction was performed. The baby was handed to the team for immediate attention. The placenta was delivered manually intact. Uterine cavity was cleaned with wet sponge and drainage established. Uterus closed in 2 layers using [one monocryl] in continuous fashion. The right tube was ligated using o plain tie twice and cut with metzembum scissors. The same was done to the left tube. Peritoneal cavity irrigated with warm saline. Sponge, needle and instrument count reported to be correct. Abdominal peritoneum closed with [] continuously. Rectus muscle approximated with one monocryl []. Fascia closed with one monocryl[], and skin closed with frederick. Estimated blood loss []mL. Urine bag contained []mL of urine BEVERLY MACIAS MD Aug 30, 2018 12:27
[2018-08-30] MEDS ORDERED: HYDROmorphONE 1 MG/5 ML IV SYRINGE IV PRN ×3 (14:00)
[2018-08-30] MEDS ORDERED: NALOXONE (0.4 MG/ML) INJ IV PRN (14:00)
[2018-08-30] MEDS ORDERED: KETOROLAC 30 MG INJ IV PRN ×2 (14:00)
[2018-08-30] MEDS ORDERED: morphine 2 MG INJ IV PRN ×2 (14:00)
[2018-08-30] MEDS ORDERED: DIPHENHYDRAMINE 50 MG INJ IV PRN (14:00)
[2018-08-30] MEDS ORDERED: ONDANSETRON 4 MG INJ IV PRN ×2 (14:00)
[2018-08-30] MEDS: morphine 2 MG INJ IV PRN ×3 (15:06→21:42)
[2018-08-30 15:30] VITALS: BP 122/81; PULSE 77; RESP 19
[2018-08-30] MEDS ORDERED: NA PHOSPHATE/BIPHOS 133 ML ENEMA PR PRN (16:00)
[2018-08-30] MEDS ORDERED: NACL 0.9% 3 ML SYG IV SCH (16:00)
[2018-08-30] MEDS ORDERED: LANOLIN HPA 1 PKT TOP PRN (16:00)
[2018-08-30 20:00] VITALS: BP 119/73; PULSE 79; RESP 20
[2018-08-30] MEDS: LACTATED RINGER'S 1,000 ML IV SCH (20:30)
[2018-08-30] MEDS: DIPHENHYDRAMINE 50 MG INJ IV PRN (23:03)
[2018-08-31 00:37] VITALS: BP 125/76; PULSE 89; RESP 20
[2018-08-31] MEDS: morphine 2 MG INJ IV PRN ×3 (01:48→09:40)
[2018-08-31] MEDS: LACTATED RINGER'S 1,000 ML IV SCH ×2 (02:16→12:30)
[2018-08-31 04:00] VITALS: BP 114/60; PULSE 94; RESP 18
[2018-08-31] MEDS: DIPHENHYDRAMINE 50 MG INJ IV PRN (06:34)
[2018-08-31 08:00] VITALS: BP 110/65; PULSE 88; RESP 19
--- NOTE | 2018-08-31 09:29 | PAC ---
Date/Time of Note Date/Time of Note DATE: 08/31/18 TIME: 09:28 Post-Anesthesia Notes Post-Anesthesia Note Last documented vital signs Vital Signs Date Temp Pulse Resp B/P (MAP) Pulse Ox O2 O2 Flow FiO2 Time Delivery Rate 08/31/18 98.0 94 18 114/60 95 Room Air 04:00 (78) Activity: WNL Respiratory function: WNL Cardiovascular function: WNL Mental status: Baseline Pain reasonably controlled: Yes Hydration appropriate: Yes Nausea/Vomiting absent: No RADHA LAGUNAS MD Aug 31, 2018 09:28
--- NOTE | 2018-08-31 09:30 | OPPN ---
Date/Time of Note Date/Time of Note DATE: 08/31/18 TIME: 09:29 Anesthesia Follow up Anesthesia Follow up Last documented vital signs Vital Signs Date Temp Pulse Resp B/P (MAP) Pulse Ox O2 O2 Flow FiO2 Time Delivery Rate 08/31/18 98.0 94 18 114/60 95 Room Air 04:00 (78) Respiratory function: WNL Cardiovascular function: WNL Comments A 38 year f s/p spinal duramorph for post op pain, POD#1 is doing fine. No headache, pain, N/V, itching, neural deficit. RADHA LAGUNAS MD Aug 31, 2018 09:30
[2018-08-31] MEDS: HYDROCODONE/APAP (5/325) TAB PO PRN ×3 (12:57→21:15)
[2018-08-31] MEDS: IBUPROFEN 800 MG TAB PO SCH ×2 (15:50→22:11)
--- NOTE | 2018-08-31 17:53 | QN ---
Documentation Comment doing well vss abd soft incision healing well d/c IV BEVERLY MACIAS MD Aug 31, 2018 17:53
--- NOTE | 2018-08-31 17:54 | DS ---
Date/Time of Note Date/Time of Note DATE: 08/31/18 TIME: 17:54 Discharge Summary Admission/Discharge Info Admit Date/Time Aug 30, 2018 at 08:37 Discharge Date/Time Discharge Diagnosis term Patient Condition: Stable Procedures repeat c/s and btl Hospital Course unremarkable Home Meds Active Scripts Acetaminophen* (Tylenol*) 325 Mg Tablet, 1 TAB PO Q6 PRN for PAIN AND OR ELEVATED TEMP, #20 TAB Prov:CUCA ESPAÑA PA-C 08/10/18 Reported Medications [id number] ( 19) 1 Each Tablet, 1 TAB PO DAILY, TAB 08/10/18 Primary Care Provider Misbah Parry Pending Labs Laboratory Tests Test 08/31/18 06:43 08/31/18 13:59 Lab Scanned Report REFER[facility] LAB [id number] White Blood Count 10.0 10^3/ul (4.8-10.8) Red Blood Count 3.54 10^6/ul (4.20-5.40) Hemoglobin 10.5 g/dl (12.0-16.0) Hematocrit 31.5 % (37.0-47.0) Mean Corpuscular Volume 89.0 fl (82.0-101.0) Mean Corpuscular Hemoglobin 29.7 pg (29.0-33.0) Mean Corpuscular 33.3 g/dl (32.0-37.0) Hemoglobin Concent Red Cell Distribution Width 14.3 % (11.5-14.5) Platelet Count 283 10^3/UL (140-415) Mean Platelet Volume 9.7 fl (7.4-10.4) Immature Granulocytes % 0.600 % (0.001-0.429) Neutrophils % 79.7 % (39.0-77.0) Lymphocytes % 12.3 % (15.0-51.0) Monocytes % 6.6 % (0.0-11.0) Eosinophils % 0.5 % (0.0-7.0) Basophils % 0.3 % (0.0-2.0) Nucleated Red Blood Cells % 0.0 /100WBC (0.0-0.0) Immature Granulocytes # 0.060 10^3/ul (0.0-0.031) Neutrophils # 7.9 10^3/ul (1.6-7.5) Lymphocytes # 1.2 10^3/ul (0.8-2.9) Monocytes # 0.7 10^3/ul (0.3-0.9) Eosinophils # 0.1 10^3/ul (0.0-0.5) Basophils # 0.0 10^3/ul (0.0-0.1) Nucleated Red Blood Cells # 0.0 10^3/ul (0.0-0.0) BEVERLY MACIAS MD Aug 31, 2018 17:54
[2018-08-31 18:09] VITALS: BP 120/60; PULSE 96; RESP 18
[2018-08-31] MEDS: DIPHENHYDRAMINE 25 MG CAP PO PRN (18:51)
[2018-08-31 20:15] VITALS: BP 130/69; PULSE 90; RESP 18
[2018-09-01] MEDS: HYDROCODONE/APAP (5/325) TAB PO PRN ×3 (03:50→14:02)
[2018-09-01 04:15] VITALS: BP 122/74; PULSE 94; RESP 18
[2018-09-01] MEDS: IBUPROFEN 800 MG TAB PO SCH ×3 (05:55→21:36)
[2018-09-01 08:30] VITALS: BP 113/66; PULSE 77; RESP 18
[2018-09-01] MEDS: DIPHENHYDRAMINE 25 MG CAP PO PRN ×2 (15:04→21:38)
[2018-09-01 15:40] VITALS: BP 122/71; PULSE 96; RESP 16
[2018-09-01] MEDS: OXYCODONE/ACETAMINOPHEN (5/325) TAB PO PRN ×2 (17:43→22:18)
[2018-09-01 20:15] VITALS: BP 126/64; PULSE 85; RESP 18
[2018-09-02] MEDS: OXYCODONE/ACETAMINOPHEN (5/325) TAB PO PRN ×4 (02:10→14:02)
[2018-09-02 03:52] VITALS: BP 140/64; PULSE 74; RESP 18
[2018-09-02] MEDS: IBUPROFEN 800 MG TAB PO SCH ×2 (05:34→14:02)
[2018-09-02 08:00] VITALS: BP 128/81; PULSE 93; RESP 18
[2018-09-02] MEDS ORDERED: DIPHTH/TET/ACEL PERTUSS (ADULT) 0.5 ML VIAL IM* ONE (09:00)
[2018-09-02] MEDS ORDERED: MEASLES,MUMPS,RUBELLA VACCINE INJ SC* ONE (09:00)
--- NOTE | 2018-09-02 11:41 | QN ---
Documentation Comment POD#3 is stable afebrile tolertes diet No VB +BM +voids VS stable Gen NAD Abd soft NT ND Incision intact Genitalia No blood at perineum --->discharge home JUAN SCOTT M.D. Sep 02, 2018 11:41
--- NOTE | 2018-09-02 11:42 | DS ---
Date/Time of Note Date/Time of Note DATE: 09/02/18 TIME: 11:41 Discharge Summary Admission/Discharge Info Admit Date/Time Aug 30, 2018 at 08:37 Discharge Date/Time 09/02/2018 Discharge Diagnosis term Patient Condition: Good Hospital Course uneventful Home Meds Active Scripts Acetaminophen* (Tylenol*) 325 Mg Tablet, 1 TAB PO Q6 PRN for PAIN AND OR ELEVATED TEMP, #20 TAB Prov:CUCA ESPAÑA PA-C 08/10/18 Reported Medications [id number] Ltxahykr-VH-LPI ( 19) 1 Each Tablet, 1 TAB PO DAILY, TAB 08/10/18 Primary Care Provider JUAN Stone M.D. Sep 02, 2018 11:42
--- NOTE | 2018-09-03 14:51 | DELSUM ---
Delivery Summary A-C Datetime Report Generated by CPN: 09/03/2018 14:51 DELIVERY PERSONNEL Software Quality Specialist: Wolf, [place] MATERNAL INFORMATION Delivery Anesthesia: Spinal Medications in Delivery: see anesthesia Delivery QBL (ml): 500 Placenta Cultured: No Maternal Complications: None Other Maternal Complications: previous section scheduled LABOR SUMMARY EDC: 09/05/2018 00:00 No. Babies in Womb: 1 Attempted: No Labor Anesthesia: None LABOR INFORMATION Reason for Induction: Not Applicable Group B Beta Strep: Negative Antibiotics # of Doses: 1 Antibiotics Time of Last Dose: 08/30/2018 11:42 Steroids Given: None Reason Steroids Not Administered: Not Applicable MEMBRANES Membranes Rupture Method: Artificial Rupture of Membranes: 08/30/2018 11:59 Length of Rupture (hr): 0.00 Amniotic Fluid Color: Clear Amniotic Fluid Amount: Small Amniotic Fluid Odor: Normal STAGES OF LABOR Stage 3 hr: 0 Stage 3 min: 1 CSECTION DELIVERY Primary Indication: Repeat Elective Secondary Indication: N/A CSection Urgency: Non Elective CSection Incidence: Repeat Labor: No Labor Elective: Nonelective CSection Incision: Lower Uterine Transverse Sterilization Procedure: Karen BABY A INFORMATION Infant Delivery Date/Time: 08/30/2018 11:59 Method of Delivery: Born in Route : No : N/A Forceps: N/A Vacuum Extraction: N/A Shoulder Dystocia : N/A SHOULDER DYSTOCIA BABY A Delivery Date/Time: 08/30/2018 11:59 PRESENTATION/POSITION BABY A Presentation: Cephalic Cephalic Presentation: Vertex Vertex Position: Left Occipital Anterior Breech Presentation: N/A PLACENTA INFORMATION BABY A Placenta Delivery Time : 08/30/2018 12:00 Placenta Method of Delivery: Manual Removal Placenta Status: Delivered SCORES BABY A Heart Rate 1 min: >100 bpm Resp Effort 1 min: Good Cry Reflex Irritability 1 min: Cough/Sneeze/Pulls Away Muscle Tone 1 min: Active Motion Color 1 min: Blue/Pale Resuscitation Effort 1 min: Tactile Stimulation SCORE 1 MIN: 8 Heart Rate 5 min: >100 bpm Resp Effort 5 min: Good Cry Reflex Irritability 5 min: Cough/Sneeze/Pulls Away Muscle Tone 5 min: Active Motion Color 5 min: Body [place], Extremit Blue SCORE 5 MIN: 9 INFANT INFORMATION BABY A Gestational Age at Delivery: 39.1 Gestational Status: Full Term- 39- 40.6 Weeks Infant Outcome : Liveborn, with signs of life Condition : Stable Sex: Male IDENTIFICATION/MEDS BABY A ID Band Number: [id number] ID Band Location: Right Leg; Left Arm Sensor Applied: Yes Sensor Number: [id number] Sensor Location : Cord Clamp WEIGHT/LENGTH BABY A Birthweight (gm): 3195 Weight (lb): 7 Weight (oz): 1 Length (in): 20.50 Infant Length (cm): 52.07 CORD INFORMATION BABY A No. Cord Vessels: 3 Nuchal Cord : N/A Suction: Mouth; Nose ASSESSMENT BABY A Infant Complications: None Physical Findings at Delivery: Within Normal Limits Respirations: Appears Normal Document Specialist/ALS Called : No Infant Care By: /ISABEL LOPEZ Transferred To: Remains with Mother
== END 2018-09-02 14:15 | disposition home or self-care (01) | DRG 785 ==
LOC: L-D 08:37 → PP1 15:29
PROVIDERS: ADMIT Obstetrics & Gynecology; ATTEND Obstetrics & Gynecology
PROC: 10D00Z1 Extraction of Products of Conception, Low, Open Approach (ICD-10-PCS; principal; 2018-08-30)
PROC: 0UB70ZZ Excision of Bilateral Fallopian Tubes, Open Approach (ICD-10-PCS; 2018-08-30)
DX: O34.211 Maternal care for low transverse scar from previous cesarean delivery (principal); Z3A.39 39 weeks gestation of pregnancy; Z37.0 Single live birth; Z30.2 Encounter for sterilization
CPT/HCPCS: 85025; 85610; 85730; 86592; 86850; 86900; 86901; 87340; 88302; 88305; 99464; J0690; J1200; J1885; J2210; J2270; J2274; J2370; J2405; J2590; J2765; J7120

== ENCOUNTER 2018-10-01 16:05 | Emergency (ER) | payer OTHER ==
[~2018-10-01] VITALS: Ht 152.4 cm; Wt 90.6 kg
[2018-10-01 16:14] VITALS: BP 151/69; PULSE 82; RESP 18; Ht 152.4 cm; Wt 90.6 kg
--- NOTE | 2018-10-01 16:22 | ERD ---
ER Documentation Chief Complaint Chief Complaint 1 MONTH AGO WITH SEVERE PAIN ON INCISION AND OPEN HPI 38-year-old female presents with possible opening or visible object on the right side of her wound. She had a section 1 month ago. She has no fevers, vomiting, bleeding or discharge. ROS All systems reviewed and are negative except as per history of present illness. Medications Home Meds No Active Prescriptions or Reported Meds Allergies Allergies: Coded Allergies: No Known Drug Allergy (Verified Allergy, Unknown, 12/14/17) PMhx/Soc Anesthesia Reaction: No Hx Neurological Disorder: No Hx Respiratory Disorders: No Hx Cardiac Disorders: No Hx Psychiatric Problems: No Hx Miscellaneous Medical Probl: Yes (headaches) Hx Alcohol Use: No Hx Substance Use: No Hx Tobacco Use: No Smoking Status: Former smoker FmHx Family History: No diabetes, No coronary disease, No other Physical Exam Vitals Vital Signs Date Temp Pulse Resp B/P (MAP) Pulse Ox O2 O2 Flow FiO2 Time Delivery Rate 10/01/18 99.6 82 18 151/69 96 16:14 (96) Physical Exam Const: No acute distress Head: Atraumatic Eyes: Normal Conjunctiva ENT: Normal External Ears, Nose and Mouth. Neck: Full range of motion. No meningismus. Resp: Clear to auscultation bilaterally Cardio: Regular rate and rhythm, no murmurs Abd: Soft, non tender, non distended. Normal bowel sounds. Healing scar. On the right edge there appears to be a small absorbable suture and. No erythema or discharge. Skin: No petechiae or rashes Back: No midline or flank tenderness Ext: No cyanosis, or edema Neur: Awake and alert Psych: Normal Mood and Affect Procedures/MDM The end of the suture was removed with forceps. Wound shows no signs of infection, abscess and there is no abdominal tenderness to suggest abscess, surgical abdomen. Patient appears to have a suture knot from absorbable suture protruding from wound which is successfully removed. She will discharged home with continuation of wound care, return precautions for fevers, redness, new worsening symptoms. Departure Diagnosis: Primary Impression: Postoperative complication Surgical complication system/body Area: subcutaneous tissue Surgical complication type: unspecified Condition: Stable Patient Instructions: Post Op Wound Check, Pain Referrals: TASNEEM TOLBERT (PCP) Additional Instructions: Object appears to be knot from absorbable sutures. Recheck for redness, fevers, discharge, new worsening symptoms. CONOR SHEN MD Oct 01, 2018 16:22
== END 2018-10-01 16:19 | disposition home or self-care (01) ==
LOC: E/R 16:05 → FTE 16:19
DX: O90.89 Other complications of the puerperium, not elsewhere classified (principal); Z87.891 Personal history of nicotine dependence
CPT/HCPCS: 99282